=== PATIENT | female | born 1995 | race Caucasian/White ===

== ENCOUNTER 2020-05-03 11:36 | Emergency (ER) | payer OTHER ==
--- NOTE | 2020-05-03 12:11 | ER Document Report ---
ED Medical Screen (RME) - General Chief Complaint: Abdominal Cramping Stated Complaint: ABDOMINAL CRAMPING Time Seen by Provider: 05/03/20 12:07 Information source: Patient Notes: Patient presents stating that she is 16 weeks . Patient reports lower pelvic cramping for the past 2 days and decreased movement. Patient states that she has had vaginal discharge without bleeding. Patient has not had any care with this . I have greeted and performed a rapid initial assessment of this patient. A comprehensive ED assessment and evaluation of the patient, analysis of test results and completion of the medical decision making process will be conducted by additional ED providers. - Related Data Allergies/Adverse Reactions: No Known Allergies Allergy (Verified 05/03/20 12:07) Physical Exam - Vital signs Vitals: Temp Pulse Resp BP Pulse Ox 98.4 F 97 18 135/75 H 97 05/03/20 11:42 05/03/20 11:42 05/03/20 11:42 05/03/20 11:42 05/03/20 11:42 - General General appearance: Appears well, Alert Notes: Lower pelvic tenderness Course - Vital Signs Vital signs: Temp Pulse Resp BP Pulse Ox 98.4 F 97 18 135/75 H 97 05/03/20 11:42 05/03/20 11:42 05/03/20 11:42 05/03/20 11:42 05/03/20 11:42
--- NOTE | 2020-05-03 12:59 | RADIOLOGY REPORT (SQ) ---
EXAM DESCRIPTION: U/S OB 14+ TRNABD 1GES W/O DOP IMAGES COMPLETED DATE/TIME: 05/03/2020 12:48 pm REASON FOR STUDY: pelvic pain COMPARISON: None. TECHNIQUE: Limited transabdominal grayscale ultrasound for evaluation of specific requested obstetri mina parameters. LIMITATIONS: None. FINDINGS: CLINICAL DATES: 16 week 1 day. EGA: 16 week 1 day. ASHLEY: 10/17/2020. EFW: 146 g. CERVICAL LENGTH: 3.1 cm. Closed. LVP: 5.5 x 8.8 cm. FHR: 144 beats per minute. PRESENTATION: Transverse. PLACENTA: Posterior ANATOMY: Not assessed OTHER: No other significant findings. IMPRESSION: LIMITED OBSTETRICAL ULTRASOUND WITH MEASURED PARAMETERS DELINEATED ABOVE. Trimester of : Second trimester - 13 weeks 1 day to 27 weeks 6 days. TECHNICAL DOCUMENTATION: JOB ID: [id number] [employer]- All Rights Reserved Reading location - IP/workstation name: [email or web address]
[2020-05-03 13:55] LABS: ABSOLUTE EOSINOPHILS # (AUTO) 0.2 10^3/uL (0.0-0.6); ABSOLUTE MONOCYTES (AUTO) 0.5 10^3/uL (0.1-1.4); ABSOLUTE NEUT (AUTO) 6.2 10^3/uL (1.7-8.2); BASOPHILS % (AUTO) 0.3 % (0-2); EOSINOPHILS % (AUTO) 2.4 % (0-6); HEMATOCRIT 38.5 % (36.0-47.0); HEMOGLOBIN 13.6 g/dL (12.0-15.5); LYMPHOCYTES % (AUTO) 13.1 % (13-45); MEAN CORPUSCULAR HEMOGLOBIN 32.2 pg (27.0-33.4); MEAN CORPUSCULAR HGB CONC 35.3 g/dL (32.0-36.0); MEAN CORPUSCULAR VOLUME 91 fl (80-97); MONOCYTES % (AUTO) 6.5 % (3-13); PLATELET COUNT 324 10^3/uL (150-450); RED BLOOD COUNT 4.21 10^6/uL (3.72-5.28); RED CELL DISTRIBUTION WIDTH 13.1 % (11.5-14.0); SEGMENTED NEUTROPHILS % (AUTO) 77.7 % (42-78); TOTAL CELLS COUNTED % (AUTO) 100 %
[2020-05-03 14:18] LABS: ANION GAP 8 (5-19); BLOOD UREA NITROGEN 7 mg/dL (7-20); CALCIUM 9.2 mg/dL (8.4-10.2); CARBON DIOXIDE 23 mmol/L (22-30); CHLORIDE 105 mmol/L (98-107); GLUCOSE 84 mg/dL (75-110); POTASSIUM 4.7 mmol/L (3.6-5.0)
[2020-05-03 17:25] LABS: BACTERIA (WET MOUNT) 4+ BACTERIA SEEN; EPITHELIALS (WET MOUNT) 3+ EPITHELIALS SEEN; RBCS (WET MOUNT) 1+ RBCS SEEN; T.VAGINALIS (WET MOUNT) NO TRICHOMONAS SEEN; WBCS (WET MOUNT) 3+ WBCS SEEN; YEAST (WET MOUNT) NO YEAST SEEN
--- NOTE | 2020-05-03 17:39 | ER Document Report ---
ED GI/ - General Chief Complaint: Abdominal Pain Stated Complaint: ABDOMINAL CRAMPING Time Seen by Provider: 05/03/20 12:07 Notes: HPI: 24-year-old female -0-0-1 at 16 weeks by dates with no [employer] at this moment who presents today with some intermittent left lower abdominal "cramping". No vaginal bleeding, fevers, vomiting, diarrhea, or dysuria. Patient states she thinks she feels some decreased movement. ROS: See HPI All other review of systems reviewed and otherwise negative Reviewed vital signs and nursing note as charted by RN. PHYSICAL EXAM: CONSTITUTIONAL: Alert and oriented and responds appropriately to questions. Well-appearing; well-nourished HEAD: Normocephalic; atraumatic EYES: PERRL; sclerae non-icteric ENT: Normal nose; no rhinorrhea; moist mucous membranes; pharynx without lesions noted NECK: Supple without meningismus; non-tender; no cervical lymphadenopathy, no masses CARD: Regular rate and rhythm; no murmurs; symmetric distal pulses RESP: Normal chest excursion without splinting or tachypnea; breath sounds clear and equal bilaterally ABD/GI: Normal bowel sounds; non-distended; soft, non-tender currently to deep palpation of all 4 quadrants of the abdomen. No palpable masses BACK: The back appears normal and is non-tender to palpation EXT: Normal ROM in all joints; non-tender to palpation; no edema SKIN: No acute lesions noted NEURO: CN 2-12 intact; 5/5 bilateral upper and lower extremity strength with sensation intact to light touch PSYCH: The patient's mood and manner are appropriate. Grooming and personal hygiene are appropriate. - Related Data Allergies/Adverse Reactions: No Known Allergies Allergy (Verified 05/03/20 12:07) Past Medical History - General Information source: Patient - Social History Smoking Status: Never Smoker Family History: Reviewed & Not Pertinent Patient has homicidal ideation: No Physical Exam - Vital signs Vitals: Temp Pulse Resp BP Pulse Ox 98.4 F 97 18 135/75 H 97 05/03/20 11:42 05/03/20 11:42 05/03/20 11:42 05/03/20 11:42 05/03/20 11:42 Course - Re-evaluation Re-evalutation: Given the above history and physical, we will order an ultrasound, pelvic labs, perform a pelvic exam, obtain a quantitative hCG and urine analysis. We would like to evaluate for the possibility of demise, ectopic , urinary tract infection, or other acute abdominal pathology. Patient's pain is mostly left lower quadrant. It is not intense in quality with no radiation to the back. I do believe acute ovarian torsion to be unlikely. 05/03/20 17:38 Labs and ultrasound as recorded. On pelvic examination the patient has no obvious external or internal lesions. No cervical motion tenderness or adnexal masses or tenderness. Patient's urine analysis is pending. Patient's pain is much improved. 05/03/20 18:35 Patient has no pain. Vital signs stable. Ultrasound and urine analysis as recorded. Patient will be discharged home with strict return precautions and f ollow-up with [employer] which I will provide. - Vital Signs Vital signs: Temp Pulse Resp BP Pulse Ox 98.4 F 97 18 135/75 H 97 05/03/20 11:42 05/03/20 11:42 05/03/20 11:42 05/03/20 11:42 05/03/20 11:42 - Laboratory Result Diagrams: 05/03/20 13:23 05/03/20 13:23 Laboratory results interpreted by me: 05/03/20 13:23 Sodium 136.3 L Beta HCG, Quant 47805.00 H Discharge - Discharge Clinical Impression: Pelvic pain affecting Qualifiers: Trimester: second trimester Qualified Code(s): O26.892 - Other specified related conditions, second trimester; R10.2 - Pelvic and perineal pain Condition: Good Disposition: HOME, SELF-CARE Additional Instructions: Come back immediately for any increased pain, change in location or quality of pain, vaginal bleeding, fevers or vomiting, or any other acute problems. Please make sure that you follow-up with [employer] as we have discussed. Referrals: ROSALINO VIVAR MD [ACTIVE STAFF] - Follow up as needed
[2020-05-03 18:10] LABS: APPEARANCE,URINE CLEAR; BILIRUBIN,URINE NEGATIVE (NEGATIVE); COLOR,URINE YELLOW; GLUCOSE, URINE NEGATIVE (NEGATIVE); KETONES,URINE NEGATIVE (NEGATIVE); LEUKOCYTE ESTERASE,URINE NEGATIVE (NEGATIVE); NITRITE,URINE NEGATIVE (NEGATIVE); PROTEIN,URINE NEGATIVE (NEGATIVE); URINE SPECIFIC GRAVITY 1.019; UROBILINOGEN,URINE NEGATIVE mg/dL (<2.0)
[2020-05-03 18:50] LABS: CHLAM PCR NOT DETECTED (NOT DETECT)
[2020-05-03 18:53] VITALS: BP 122/58
== END 2020-05-03 18:52 | disposition home or self-care (01) ==
LOC: ER 11:36
DX: O26.892 Other specified pregnancy related conditions, second trimester (principal); R10.2 Pelvic and perineal pain; R10.9 Unspecified abdominal pain; Z3A.16 16 weeks gestation of pregnancy
CPT/HCPCS: 36415; 76805; 80048; 81001; 84702; 85025; 87210; 87491; 87591; 99284